=== PATIENT | male | born 1995 | race Caucasian/White ===

== ENCOUNTER → 2024-09-19 | Outpatient (CLI) | payer OTHER, SELFPAY ==
--- NOTE | 2024-09-19 13:52 | ECHOD_ITS ---
Reason For Study Reason For Study: Chest Pain Procedure This was a 2D Doppler, Color Flow transthoracic echocardiogram. Exam performed in department. Left Ventricle Normal LV size. Left ventricular systolic function is normal. The left ventricular ejection fraction is 60 %. No regional wall motion abnormalities noted. Right Ventricle Normal RV size. Normal systolic function. Atria Normal left atrium. Normal right atrium. Mitral Valve Normal mitral valve. Tricuspid Valve Normal tricuspid valve. Aortic Valve Normal aortic valve. Pulmonic Valve Normal pulmonic valve. Great Vessels Normal aortic root. The pulmonary artery is normal size. Normal inferior vena cava. Pericardium/Pleural No pericardial effusion. MMode/2D Measurements & Calculations LVIDd: 4.9 cm IVSd: 1.1 cm Ao root diam: 3.0 cm LVIDs: 3.3 cm LVPWd: 0.94 cm RVDd: 3.9 cm FS: 33.9 % LVAd ap4: 36.9 cm2 SV(MOD-sp4): 68.0 ml SV(sp4-el): 73.9 ml LVLd ap4: 9.7 cm SI(MOD-sp4): 31.7 ml/m2 EDV(MOD-sp4): 115.5 ml EDV(sp4-el): 118.9 ml LVAs ap4: 21.5 cm2 LVLs ap4: 8.7 cm ESV(MOD-sp4): 47.5 ml ESV(sp4-el): 45.0 ml EF(MOD-sp4): 58.9 % EF(sp4-el): 62.2 % LA dimension(2D): 3.7 cm Time Measurements MV dec time: 0.27 sec Doppler Measurements & Calculations MV E max jayden: 76.6 cm/sec Lat Peak E' Jayden: 23.0 cm/sec Med Peak E' Jayden: 16.7 cm/sec MV A max jayden: 62.0 cm/sec E/E' lat: 3.3 E/E' med: 4.6 MV E/A: 1.2 MV V2 max: 95.8 cm/sec MV P1/2t max jayden: 100.9 cm/sec Ao V2 max: 126.8 cm/sec MV max P.7 mmHg MV P1/2t: 106.0 msec Ao max P.4 mmHg MV V2 mean: 60.0 cm/sec MV dec slope: 279.0 cm/sec2 Ao V2 mean: 87.4 cm/sec MV mean P.6 mmHg Ao mean P.5 mmHg MV V2 VTI: 29.1 cm MVA(P1/2t): 2.1 cm2 Ao V2 VTI: 25.3 cm AV (velocity ratio): 0.88 LV V1 max: 110.8 cm/sec PA V2 max: 130.6 cm/sec TR max jayden: 173.9 cm/sec LV V1 max P.9 mmHg TR max P.1 mmHg LV V1 mean P.7 mmHg LV V1 mean: 75.9 cm/sec LV V1 VTI: 22.3 cm ECHO/Echo Complete Interpretation Summary Normal LV size. Left ventricular systolic function is normal. The left ventricular ejection fraction is 60 %. Structurally normal valves. Ordering Physician: Kashmir Reddy Referring Physician: Kashmir Reddy Performed By: Todd Fowler RCS
== END | disposition home or self-care (01) ==
LOC: CVS 13:51
PROVIDERS: PCP Nurse Practitioner Family; Referring Provider Nurse Practitioner Family; Visit Provider Nurse Practitioner Family
DX: R07.9 Chest pain, unspecified (principal)
CPT/HCPCS: 93306

== ENCOUNTER → 2024-11-14 | Outpatient (CLI) | payer OTHER, SELFPAY ==
--- NOTE | 2024-11-18 11:24 | STRESSREP ---
Stress Test Report Exercise stress test. 29-year-old man with a history of chest pain. Stress protocol: Resting EKG demonstrates normal sinus rhythm with a rate of 65 bpm resting blood pressure is 130/88 mmHg. The patient exercised according to the regular [facility] protocol for a total duration of 13 minutes and 30 seconds attaining a maximum heart rate of 171 bpm which was 88% of maximum predicted heart rate; the maximum workload was 17.5 metabolic equivalents. At rest there were no ST or T wave changes noted to suggest ischemia and at peak exercise upsloping ST changes only were noted which did not meet the criteria for ischemia. No clinical angina was noted the test was terminated due to the target heart rate being achieved/fatigue. The peak blood pressure was 162/78 mmHg. Rate-pressure product was 26,000. Conclusion: Normal exercise stress test with no evidence of ischemia at a high workload.
== END | disposition home or self-care (01) ==
PROVIDERS: PCP Nurse Practitioner Family; Referring Provider Family Medicine; Visit Provider Internal Medicine Cardiovascular Disease
DX: R07.9 Chest pain, unspecified (principal)
CPT/HCPCS: 93017